=== PATIENT | female | born 1990 | race Caucasian/White ===

== ENCOUNTER 2022-12-25 05:30 | Inpatient (IN) ==
[2022-12-25] MEDS ORDERED: LIDOCAINE 1% LOCAL 20 ML VIAL INFIL PRN (06:11)
[2022-12-25] MEDS ORDERED: OXYTOCIN 30 UNITS/500 ML BAG IV PRN ×2 (06:11→12:46)
[2022-12-25 06:52] LABS: Hemoglobin 14.3 g/dl (12.0-16.0); Mean Corpuscular Hemoglobin 30.1 pg (25.0-34.0); Mean Corpuscular Hgb Conc 34.9 g/dL (32.0-36.0); Mean Corpuscular Volume 86.3 fL (80.0-100.0); Mean Platelet Volume 11.1 fL (9.4-12.4); Platelet Count 202 K/uL (130-400); RDW Coefficient of Variation 12.3 % (11.5-14.5); RDW Standard Deviation 38.7 fL (36.4-46.3); Red Blood Count 4.75 M/uL (4.20-5.40); White Blood Count 18.64 K/ul (4.8-10.8)
[2022-12-25] MEDS ORDERED: fentaNYL citrate PF 100 MCG/2 ML VIAL ONE (07:02)
[2022-12-25] MEDS ORDERED: BUPIVACAINE 0.25% PF 30 ML VIAL ONE (07:03)
[2022-12-25] MEDS ORDERED: ePHEDrine sulfate 50 MG/ML AMP ONE (07:03)
[2022-12-25] MEDS ORDERED: SODIUM CHLORIDE 0.9% PF INJ 10 ML VIAL ONE (07:03)
[2022-12-25] MEDS ORDERED: LIDOCAINE 2%/EPINEPHRINE 1:200,000 20 ML PF ONE (07:03)
[2022-12-25] MEDS ORDERED: fentaNYL 2MCG/ML ROPIVACAINE 1.25MG/ML 100 ML BAG EPI ONE (07:04)
[2022-12-25] MEDS: LACTATED RINGER'S 1,000 ML IV PRN ×2 (07:18→08:16)
--- NOTE | 2022-12-25 07:36 | Anesthesiology Consultation ---
Date of Service December 25, 2022 Assessment & Plan Chart Review Chart Review: Acceptable Risk for Labor Epidural Consults Requested none ASA ASA2 Proposed Anesthesia Anesthesia Type: Labor Epidural Risk / Benefits Reviewed With: PT / POA / Parent / Guardian, Accepts Plan and Informed Consent Obtained History Height/Weight Height: 5 ft 7 in Weight: 101.605 kg Allergies Allergy/AdvReac Type Severity Reaction Status Date / Time No Known Allergies Allergy Verified 12/24/22 21:04 Medications Home Medications Medication Instructions Recorded Confirmed Last Taken prenat.vits,darnell,[id number] 1 tab PO DAILY #90 tabs 06/27/22 12/25/22 12/24/22 aspirin 81 mg capsule 81 mg PO DAILY 12/25/22 12/25/22 12/24/22 Active Medications Generic Name Dose Route Start Last Admin Trade Name Freq PRN Reason Stop Dose Admin Lactated Ringer's 1,000 mls @ 125 mls/hr 12/25/22 06:11 12/25/22 07:18 Lr IV 12/27/22 06:10 999 mls/hr .Q8H PRN Administration L&D Protocol Protocol Past Medical History Medical History Migraine Exercise / Class Metabolic Activity II 4-5 Yardwork/Stairs/Walk up hill Past Family History Family History Father Diabetes Hypertension Dyslipidemia Mother Thyroid disease Past Surgical History Surgical History Hx of LASIK S/P wisdom tooth extraction Past Anesthesia History No Hx of Anesthesia Complications and No Family Hx of Anesthesia Complications History of PONV No Hx of PONV and No Hx of Motion Sickness Social History Smoking Status: Never smoker Do You Dip or Chew Tobacco: No Hx Alcohol Use: No Hx Substance Use: No substance use type: does not use Physical Exam Vital Signs Last Vital Signs Temp 97.7 F 12/25/22 05:50 Pulse 91 H 12/25/22 07:29 Resp 18 12/25/22 05:50 BP 123/73 12/25/22 07:19 Pulse Ox 100 12/25/22 07:29 ENMT Mouth: no dentition abnormality Thyromental Distance: > or= 3.5 Finger Breadths Mallampati Class: II Neck normal visual inspection Respiratory normal respiratory effort Auscultation: lungs clear to auscultation bilaterally Cardiovascular Rate/Rhythm: regular rate and regular rhythm Testing Laboratory Results 12/25/22 06:33
[2022-12-25] MEDS ORDERED: diphenhydrAMINE 50 MG/ML VIAL IV PRN (07:37)
[2022-12-25] MEDS ORDERED: ONDANSETRON INJ 2 MG/ML 2 ML VIAL IV PRN (07:37)
[2022-12-25] MEDS ORDERED: LIDOCAINE 2%/EPINEPHRINE 1:200,000 20 ML PF EPI STA (07:37)
[2022-12-25] MEDS ORDERED: fentaNYL citrate PF 100 MCG/2 ML VIAL EPI STA (07:37)
[2022-12-25] MEDS ORDERED: NALOXONE HCL 0.4 MG/1 ML VIAL/CARP IV PRN (07:37)
[2022-12-25] MEDS ORDERED: BUPIVACAINE 0.25% PF 30 ML VIAL EPI PRN (07:37)
[2022-12-25] MEDS ORDERED: NALOXONE HCL 1 MG in SODIUM CHLORIDE 0.9% 1,000 ML IV PRN (07:37)
[2022-12-25] MEDS ORDERED: fentaNYL citrate PF 100 MCG/2 ML VIAL EPI PRN (07:37)
[2022-12-25] MEDS ORDERED: fentaNYL 2MCG/ML ROPIVACAINE 1.25MG/ML 100 ML BAG EPI PRN (07:37)
[2022-12-25] MEDS ORDERED: ePHEDrine sulfate 50 MG/ML AMP IV PRN (07:37)
[2022-12-25] MEDS ORDERED: LIDOCAINE 2% MPF LOCAL 5 ML VIAL EPI PRN (07:37)
[2022-12-25] MEDS ORDERED: SODIUM CHLORIDE 0.9% PF INJ 10 ML VIAL EPI STA (07:37)
[2022-12-25] MEDS ORDERED: SODIUM CHLORIDE 0.9% PF INJ 10 ML VIAL EPI PRN (07:37)
[2022-12-25] MEDS ORDERED: NALBUPHINE HCL INJ 10 MG/ML AMP IV PRN (07:37)
[2022-12-25] MEDS ORDERED: BUPIVACAINE 0.25% PF 30 ML VIAL EPI STA (07:37)
[2022-12-25] MEDS ORDERED: ROPIVACAINE 0.5% PF 5 MG/ML 20 ML VIAL EPI PRN (07:37)
--- NOTE | 2022-12-25 08:13 | History & Physical Report ---
Date of Service December 25, 2022 Assessment & Plan (1) PROM (premature rupture of membranes): (2) Encounter for induction of labor: Plan Patient received epidural Pitocin for augmentation of labor Monitor heart tracing Admission and Anticipated Discharge Date Admission Date: December 25, 2022 History of Present Illness Chief Complaint: premature rupture of membranes, onset of labor Primary Care Provider: NO PCP Pt is a 32 year old female, at 38 weeks gestational age confirmed via LMP, presenting for active management of labor. Patient was evaluated on 12/24 and deemed to have premature rupture of membranes without contractions or vaginal bl eeding. Patient opted to return home against recommendation, notes that contractions began around 2AM on 12/25 and were becoming more frequent, leading her to return to hospital. Patient has had routine care, denies complications prior to premature rupture of membranes. GBS negative. Active movement. OB Labs: Blood Type A Positive 06/09/22 Antibody Screen NEGATIVE 06/09/22 Hemoglobin 13.2 g/dl (12.0-16.0) 10/17/22 Hematocrit 37.7 % (37.0-47.0) 10/17/22 Mean Corpuscular Volume 87.9 fL (80.0-100.0) 06/09/22 Platelet Count 223 K/uL (130-400) 06/09/22 Rubella IgG Antibody Immune (Immune) 06/09/22 Rapid Plasma Reagin Nonreactive (Nonreactive) 06/09/22 Hepatitis B Surface Antigen. NON-REACTIVE (NON-REACTIVE) 06/09/22 Hepatitis C Antibody (EIA) NON-REACTIVE (NON-REACTIVE) 06/09/22 HIV (1&2) Ag and Ab Confirmation NON-REACTIVE (NON-REACTIVE) 06/09/22 Glucose 1 Hour 50 gm Load 98 mg/dl (70-130) 10/17/22 Maternal Serum Alpha Fetoprotein 57.2 ng/mL 07/25/22 OB Optional Labs: Chlamydia trachomatis RNA Not Detected (NotDetected) 06/09/22 Neisseria gonorrhoeae RNA Not Detected (NotDetected) 06/09/22 Alpha Fetoprotein Triple Screen SEE NOTE 07/25/22 Allergies Allergy/AdvReac Type Severity Reaction Status Date / Time No Known Allergies Allergy Verified 12/24/22 21:04 Home Medications Medication Instructions Recorded Confirmed Type prenat.vits,darnell,[id number] 1 tab PO DAILY #90 tabs 06/27/22 12/25/22 Rx aspirin 81 mg capsule 81 mg PO DAILY 12/25/22 12/25/22 History Patient History Medical History Migraine Surgical History Hx of LASIK S/P wisdom tooth extraction Family History Father Diabetes Hypertension Dyslipidemia Mother Thyroid disease Social History (Updated 06/08/22 @ 17:15 by Quita Lloyd) Smoking Status: Never smoker Do You Dip or Chew Tobacco: No; Hx Alcohol Use: No Hx Substance Use: No Preferred Language: Greenlandic Communication Ability: Effective Ice Skating Coach Required: No Beliefs That Will Affect Care: None marital status: marital status details: Garth (30) [phone] Current Living Situation: Spouse Current Living Situation Comment: lives with spouse, 1 dog. current occupational status: employed current occupation: Doc. Student. Other Information That Helps Us Care for You: No Feels Safe at Home: Yes Safety Concerns: Feels Safe At This Time Assistive Devices: None Review of Systems -Denies fever or chills -Denies dyspnea, chest pain, or palpitations -Denies breast pain -Denies dysuria -Denies headache or changes in vision Physical Exam Physical Exam: General: Alert and oriented. No acute distress Cardiac: Regular rate and rhythm, no murmurs appreciated Respiratory: Lungs clear to auscultation bilaterally, No increased work of breathing Abdominal: Soft, non-tender, non-distended. Bowel sounds present. Extremities: No lower extremity edema, calves non-tender bilaterally Results & Data Vital Signs (Past 12 Hours) Vital Signs Temp Pulse Resp BP Pulse Ox O2 Del Method 12/25/22 07:30 36.9 C 18 12/25/22 07:30 Room Air 12/25/22 08:10 83 131/61 12/25/22 08:09 100 12/25/22 08:09 79 12/25/22 08:09 75 124/56 L 12/25/22 08:06 78 132/61 12/25/22 08:04 84 132/61 100 12/25/22 08:03 78 132/68 09/04/23 08:01 91 H 137/77 12/25/22 07:59 90 119/73 99 12/25/22 07:56 81 139/67 12/25/22 07:55 80 127/55 L 12/25/22 07:54 82 99 12/25/22 07:51 73 137/64 12/25/22 07:49 75 148/63 H 99 12/25/22 07:47 69 154/66 H 12/25/22 07:44 80 98 12/25/22 07:43 86 174/72 H 12/25/22 07:41 88 136/71 12/25/22 07:39 93 H 100 12/25/22 07:34 76 100 12/25/22 07:29 91 H 100 12/25/22 07:24 98 H 100 12/25/22 07:19 75 123/73 100 12/25/22 05:54 74 138/87 12/25/22 05:50 36.5 C 18 Resident Activity Tracking Resident Involvement: Resident Care Provided Care Provided: OB Delivery
[2022-12-25] MEDS: OXYTOCIN 30 UNITS/500 ML BAG IV PRN ×2 (08:33→12:13)
--- NOTE | 2022-12-25 12:20 | Delivery Summary ---
Vaginal Delivery Summary Date of Service December 25, 2022 Vaginal Delivery Summary Spontaneous vaginal delivery the patient is admitted by Dr. Manzo earlier was premature rupture of membranes she did go into a more steady labor pattern requested epidural and then required oxytocin augmentation she was group B strep negative she then rapidly progressed to fully dilated pushing baby out in occiput anterior position there was a tight nuchal cord which was clamped and cut baby was then delivered easily with gentle traction no excessive force live vigorous male . Cord blood was obtained placenta was removed with traction the patient was noted to have a vaginal septum and this had torn and had torn in adjacency to the cervix. This was repaired on the cervix and part of the vaginal septum was resected by tying with 3-0 Vicryl and then cutting away the excess tissue. At the end bleeding was within reason sponge and instrument counts correct estimated blood loss metered milliliters
[2022-12-25] MEDS ORDERED: bisacodyL 10 MG SUPP PR PRN (12:46)
[2022-12-25] MEDS ORDERED: HYDROCORTISONE ACETATE 25 MG SUPP PR PRN (12:46)
[2022-12-25] MEDS ORDERED: oxyCODONE/ACETAMINOPHEN 5mg/325mg TAB PO PRN (12:46)
[2022-12-25] MEDS ORDERED: DIPHTHERIA/TETANUS/PERTUSSIS Vaccine (Tdap, Age 7+yrs) 0.5mL SYR/VL IM ONE (12:46)
[2022-12-25] MEDS ORDERED: BENZOCAINE 20% SPRY 85 APPLN/85 GM CAN EXT PRN (12:46)
--- NOTE | 2022-12-25 13:07 | Anesthesia Procedure Note ---
Date of Service December 25, 2022 Anesthesia Post Epidural Note Vital Signs Vital Signs: Temp Pulse Resp BP Pulse Ox O2 Del Method 98.6 F 76 18 128/57 L 98 Room Air 12/25/22 09:00 12/25/22 13:04 12/25/22 12:50 12/25/22 12:51 12/25/22 13:04 12/25/22 07:30 Pain Intensity Abdomen: Pain Intensity: 0 Notes Mental Status: alert / awake / arousable and participated in evaluation Nausea / Vomiting: adequately controlled Pain: adequately controlled Airway Patency, RR, SpO2: stable & adequate BP & HR: stable & adequate Hydration State: stable & adequate Neuraxial Anesthesia: was administered and sensory block is resolving Anesthetic Complications: no major complications apparent and Pt Satisfied with anesthetic care Epidural: Removed without complications and With tip intact
[2022-12-25] MEDS: IBUPROFEN 600 MG TAB PO PRN ×2 (14:39→18:16)
[2022-12-25] MEDS: ACETAMINOPHEN 325 MG TAB PO PRN ×2 (15:36→21:58)
[2022-12-25] MEDS: DOCUSATE SODIUM 100 MG CAP PO SCH (21:58)
[2022-12-26] MEDS: IBUPROFEN 600 MG TAB PO PRN ×4 (01:53→18:12)
[2022-12-26] MEDS: ACETAMINOPHEN 325 MG TAB PO PRN ×2 (05:28→20:23)
[2022-12-26 06:24] LABS: Hematocrit (blood only) 31.6 % (37.0-47.0); Hemoglobin 10.9 g/dl (12.0-16.0); Mean Corpuscular Hemoglobin 30.3 pg (25.0-34.0); Mean Corpuscular Hgb Conc 34.5 g/dL (32.0-36.0); Mean Corpuscular Volume 87.8 fL (80.0-100.0); Mean Platelet Volume 11.7 fL (9.4-12.4); Platelet Count 153 K/uL (130-400); RDW Coefficient of Variation 12.6 % (11.5-14.5); RDW Standard Deviation 40.1 fL (36.4-46.3); White Blood Count 15.37 K/ul (4.8-10.8)
--- NOTE | 2022-12-26 07:21 | Obstetrical Progress Note ---
Date of Service <Ciaran Coleman DO - Last Filed: 12/26/22 08:03> December 26, 2022 Assessment & Plan <Ciaran Coleman DO - Last Filed: 12/26/22 08:03> (1) Vaginal delivery: Plan Pt is a 32 y/o female, , s/p post- day 1 Pt feels well today, eating, voiding, and ambulating well Pain well controlled with alternating Tylenol/Motrin Routine post- care - OOB, ambulation, diet progression as tolerated After discharge, will have 6 week follow-up with Dr. Lauren. Likely discharge tomorrow. <Marline Lauren MD, FACOG - Last Filed: 12/26/22 19:19> (1) Vaginal delivery: Subjective <Ciaran Coleman DO - Last Filed: 12/26/22 08:03> Ambulation: ambulating normally Voiding: no voiding problems Passing Gas:: Yes (no bowel movement since delivery ) Diet Tolerance:: regular diet Lochia:: Large (changing pad every 2 hours) Feeding Type:: breast feeding Pain well controlled with alternating Tylenol/Motrin Review of Systems -Denies fever or chills -Denies dyspnea, chest pain, or palpitations -Denies breast pain -Denies dysuria -Denies headache or changes in vision Physical Exam <Ciaran Coleman DO - Last Filed: 12/26/22 08:03> General: Alert and oriented. No acute distress Cardiac: Regular rate and rhythm, no murmurs appreciated Respiratory: Lungs clear to auscultation bilaterally, No increased work of breathing Abdominal: Soft, non-tender, non-distended. Bowel sounds present. Uterus: Uterine fundus firm, palpable below umbilicus Extremities: No lower extremity edema, calves non-tender bilaterally Results & Data <Ciaran Coleman - Last Filed: 12/26/22 08:03> Vital Signs (Past 12 Hours) Vital Signs Temp Pulse Resp BP Pulse Ox O2 Del Method 12/26/22 04:00 36.7 C 66 16 122/77 98 Room Air 12/25/22 23:45 36.9 C 72 16 125/82 97 Room Air 12/25/22 19:45 36.5 C 64 14 121/79 99 Room Air <Marline Lauren MD, FACOG - Last Filed: 12/26/22 19:19> Co-Signing Physician Notes Resident Physician Supervision Note: I was present with [Name of resident] during the history and exam. I discussed the case with the resident and agree with the findings and plan as documented in the note. Any exceptions or clarifications are listed here: [None] Documented By: Marline Lauren MD, FACOG
[2022-12-26] MEDS: DOCUSATE SODIUM 100 MG CAP PO SCH ×2 (07:59→20:22)
[2022-12-26] MEDS: PRENATAL VITAMIN 1 TAB PO SCH (08:00)
[2022-12-26] MEDS ORDERED: bisacodyL 5 MG TABEC PO SCH (20:00)
[2022-12-27] MEDS: IBUPROFEN 600 MG TAB PO PRN ×2 (01:19→08:45)
[2022-12-27] MEDS: ACETAMINOPHEN 325 MG TAB PO PRN (05:20)
--- NOTE | 2022-12-27 05:26 | Obstetrical Progress Note ---
Date of Service <Ciaran Coleman DO - Last Filed: 12/27/22 06:56> December 27, 2022 Assessment & Plan <Ciaran Coleman DO - Last Filed: 12/27/22 06:56> (1) Vaginal delivery: Plan 32 y/o female, , post day 2 s/p Pt feels well today, eating, voiding, and ambulating well Pain well controlled with alternating Tylenol/Motrin Routine post- care - OOB, ambulation, diet progression as tolerated After discharge, will have 6 week follow-up with Dr. Lauren. <Sheila Carroll MD - Last Filed: 12/27/22 07:03> (1) Vaginal delivery: Subjective <Ciaran Coleman DO - Last Filed: 12/27/22 06:56> Ambulation: ambulating normally Voiding: no voiding problems Passing Gas:: Yes Diet Tolerance:: regular diet Lochia:: Moderate (improving) Feeding Type:: breast feeding Pain well controlled with Tylenol and Motrin Review of Systems -Denies fever or chills -Denies dyspnea, chest pain, or palpitations -Denies breast pain -Denies dysuria -Denies headache or changes in vision Physical Exam <Ciaran Coleman DO - Last Filed: 12/27/22 06:56> General: Alert and oriented. No acute distress Cardiac: Regular rate and rhythm, no murmurs appreciated Respiratory: Lungs clear to auscultation bilaterally, No increased work of breathing Abdominal: Soft, non-tender, non-distended. Bowel sounds present. Uterus: Uterine fundus firm, palpable below umbilicus Extremities: No lower extremity edema, calves non-tender bilaterally Results & Data <Ciaran Coleman DO - Last Filed: 12/27/22 06:56> Vital Signs (Past 12 Hours) Vital Signs Temp Pulse Resp BP Pulse Ox O2 Del Method 12/27/22 00:00 36.7 C 65 16 132/82 98 Room Air <Sheila Carroll MD - Last Filed: 12/27/22 07:03> Co-Signing Physician Notes Resident Physician Supervision Note: I interviewed and examined the patient. Discussed with Dr. Coleman and agree with findings and plan as documented in the note. Any exceptions or clarifications are listed here: PP2 s/p , doing well. VSS, exam benign and wnl. Stable for d/c home Documented By: Sheila Carroll MD Resident Activity Tracking <Ciaran Coleman DO - Last Filed: 12/27/22 06:56> Resident Involvement: Resident Care Provided Care Provided: OB Delivery
[2022-12-27] MEDS: PRENATAL VITAMIN 1 TAB PO SCH (08:45)
[2022-12-27] MEDS: DOCUSATE SODIUM 100 MG CAP PO SCH (08:45)
== END 2022-12-27 12:55 | disposition home or self-care (01) | DRG 806 ==
LOC: OPB 05:30 → 4S1 05:35 → 4E2 15:13